=== PATIENT | female | born 1965 | race Caucasian/White ===

== ENCOUNTER 2019-10-21 17:29 | Emergency (ER) | payer OTHER ==
[2019-10-21] MEDS ORDERED: Sodium Chloride 0.9% 10 ML Syringe FLUSH PRN (17:44)
[2019-10-21] MEDS ORDERED: Sodium Chloride 0.9% 1,000 ML IV ONE (17:44)
[2019-10-21] MEDS ORDERED: diphenhydrAMINE 50 MG/ML SDV IVPUSH ONE (17:47)
[2019-10-21] MEDS ORDERED: Dexamethasone 10 MG/ML SDV IVPUSH ONE (17:48)
[2019-10-21] MEDS ORDERED: HYDROmorphone 2 MG/ML SDV IVPUSH ONE (17:50)
--- NOTE | 2019-10-21 17:59 | EDM.PDOC ---
ED HPI GENERAL MEDICAL PROBLEM - General Chief Complaint: Headache Stated Complaint: Migrane Time Seen by Provider: 10/21/19 17:32 Source of Information: Reports: Patient, Family History Limitations: Reports: No Limitations - History of Present Illness INITIAL COMMENTS - FREE TEXT/NARRATIVE: Patient report she awoke early this AM with a typical migraine for her. She reports dull aching pain behind the right eye with nausea and vomiting. She took a benadryl and an anti-emetic she cannot recall the name of. The patient reports her pain is not improved prompting her to seek care in the emergency department. The patient rate her pain currentlly at a 7/10. She denies any red flag symptoms. Onset: Today Duration: Hour(s): (12) Location: Reports: Head Quality: Reports: Ache, Same as Previous Episode Severity: Moderate Improves with: Reports: None Worsens with: Reports: Movement Associated Symptoms: Reports: Headaches, Loss of Appetite, Nausea/Vomiting. 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 Denies: Confusion, Dizziness, Numbness, Paresthesia, Seizure, Syncope, Tingling, Tremors, Trouble Speaking, Difficulty Walking, Weakness, Change in Speech, Gait Disturbance ED EXAM, GENERAL - Physical Exam Exam: See Below Exam Limited By: No Limitations General Appearance: Alert, WD/WN, No Apparent Distress Eye Exam: Bilateral Eye: Normal Fundi, Normal Inspection Ears: Normal External Exam, Normal Canal, Hearing Grossly Normal, Normal TMs Nose: Normal Inspection, Normal Mucosa, No Blood Throat/Mouth: Normal Inspection, Normal Lips, Normal Teeth, Normal Gums, Normal Oropharynx, Normal Voice, No Airway Compromise Head: Atraumatic Neck: Normal Inspection, Supple, Non-Tender, Full Range of Motion Respiratory/Chest: No Respiratory Distress, Lungs Clear, Normal Breath Sounds, No Accessory Muscle Use, Chest Non-Tender Cardiovascular: Normal Peripheral Pulses, Regular Rate, Rhythm, No Edema, No Gallop, No JVD, No Murmur, No Rub GI/Abdominal: Normal Bowel Sounds, Soft, Non-Tender, No Organomegaly, No Distention, No Abnormal Bruit, No Mass Back Exam: Normal Inspection Extremities: Normal Inspection, Normal Range of Motion, Non-Tender, Normal Capillary Refill, No Pedal Edema Neurological: Alert, Oriented, CN II-XII Intact, Normal Cognition, Normal Gait, Normal Reflexes, No Motor/Sensory Deficits Skin Exam: Warm, Dry, Intact, Normal Color, No Rash Course - Vital Signs Last Recorded V/S: Last Vital Signs Temp 98.2 F 10/21/19 17:38 Pulse 64 10/21/19 17:38 Resp 16 10/21/19 17:38 BP 163/87 H 10/21/19 17:38 Pulse Ox 98 10/21/19 17:38 - Orders/Labs/Meds Orders: Active Orders 24 hr Category Date Time Status Sodium Chloride 0.9% [Saline Flush] Med 10/21/19 17:44 Active 10 ml FLUSH ASDIRECTED PRN Peripheral IV Insertion Adult [OM.PC] Routine Oth 10/21/19 17:44 Ordered Medication Orders Sodium Chloride (Saline Flush) 10 ml FLUSH ASDIRECTED PRN PRN Reason: Keep Vein Open Meds: Medications Generic Name Dose Route Start Last Admin Trade Name Freq PRN Reason Stop Dose Admin Sodium Chloride 10 ml 10/21/19 17:44 Saline Flush FLUSH ASDIRECTED PRN Keep Vein Open Discontinued Medications Generic Name Dose Route Start Last Admin Trade Name Freq PRN Reason Stop Dose Admin Dexamethasone 10 mg 10/21/19 17:48 10/21/19 18:07 Dexamethasone IVPUSH 10/21/19 17:49 10 mg ONETIME ONE Administration Dexamethasone Confirm 10/21/19 18:06 10/21/19 18:07 Dexamethasone Administered 10/21/19 18:07 Not Given Dose 12 mg .ROUTE .STK-MED ONE Diphenhydramine HCl 25 mg 10/21/19 17:47 10/21/19 18:05 Benadryl IVPUSH 10/21/19 17:48 50 mg ONETIME ONE Administration Diphenhydramine HCl Confirm 10/21/19 18:05 10/21/19 18:03 Benadryl Administered 10/21/19 18:06 Not Given Dose 50 mg .ROUTE .STK-MED ONE Hydromorphone HCl 1 mg 10/21/19 17:50 10/21/19 18:13 Dilaudid IVPUSH 10/21/19 17:51 1 mg ONETIME ONE Administration Hydromorphone HCl Confirm 10/21/19 18:07 10/21/19 18:12 Dilaudid Administered 10/21/19 18:08 Not Given Dose 2 mg .ROUTE .STK-MED ONE Sodium Chloride 1,000 mls @ 1,000 mls/hr 10/21/19 17:44 10/21/19 18:04 Normal Saline IV 10/21/19 18:43 1,000 mls/hr .BOLUS ONE Administration Prochlorperazine Edisylate 10 52 mls @ 150 mls/hr 10/21/19 18:00 10/21/19 18:21 mg/ Sodium Chloride IV 10/21/19 18:20 150 mls/hr ONETIME ONE Administration Prochlorperazine Edisylate Confirm 10/21/19 18:29 10/21/19 18:27 Compazine Administered 10/21/19 18:30 Not Given Dose 10 mg .ROUTE .STK-MED ONE Departure - Departure Time of Disposition: 18:54 Disposition: Home, Self-Care 01 Condition: Good Clinical Impression: Migraine - Discharge Information *PRESCRIPTION DRUG MONITORING PROGRAM REVIEWED*: Yes *COPY OF PRESCRIPTION DRUG MONITORING REPORT IN PATIENT YANNICK: Yes Instructions: Migraine Headache, [id number] Referrals: PCP,None [Primary Care Provider] - Forms: ED Department Discharge Sepsis Event Note (ED) - Evaluation Sepsis Screening Result: No Definite Risk - Focused Exam Vital Signs: Vital Signs Temp Pulse Resp BP Pulse Ox 10/21/19 17:38 98.2 F 64 16 163/87 H 98 - Problem List Review Problem List Initiated/Reviewed/Updated: Yes - My Orders Last 24 Hours: My Active Orders 10/21/19 17:44 Sodium Chloride 0.9% [Saline Flush] 10 ml FLUSH ASDIRECTED PRN Peripheral IV Insertion Adult [OM.PC] Routine - Assessment/Plan Last 24 Hours: My Active Orders 10/21/19 17:44 Sodium Chloride 0.9% [Saline Flush] 10 ml FLUSH ASDIRECTED PRN Peripheral IV Insertion Adult [OM.PC] Routine Plan: DIFFERENTIAL DIAGNOSIS: Typical Migraine Atypical migraine SAH Acute Cephalgia Tension GONZALEZ Amongst many others INITIAL PLAN: IVF GONZALEZ Cocktail MDM: Patient had what she reported to her was a "typical migraine." She had no red flag symptoms for a SAH or meningococcal signs. The patient will have an IV initiated and given an GONZALEZ cocktail. Patient was markedly improved post treatment and wishes to be discharged home. The patient remained stable throughout her ED stay and is appropriate for discharged from the ED with her spouse. The patient was given return instructions as well as follow-up instructions with her PCP. All questions were answered. FINAL PLAN: Discharge with return warnings
[2019-10-21] MEDS ORDERED: Prochlorperazine 10 MG in Sodium Chloride 0.9% 50 ML IV ONE (18:00)
[2019-10-21] MEDS ORDERED: diphenhydrAMINE 50 MG/ML SDV ONE (18:05)
[2019-10-21] MEDS ORDERED: Dexamethasone 4 MG/ML SDV ONE (18:06)
[2019-10-21] MEDS ORDERED: HYDROmorphone 2 MG/ML SDV ONE (18:07)
[2019-10-21] MEDS ORDERED: Prochlorperazine 10 MG/2 ML SDV ONE (18:29)
[2019-10-21] MEDS ORDERED: Acetaminophen/HYDROcodone 325-10 MG Tab PO ONE (18:49)
[2019-10-21] MEDS ORDERED: Ondansetron 4 MG/2 ML SDV IVPUSH ONE (18:49)
[2019-10-21] MEDS ORDERED: Ondansetron 4 MG/2 ML SDV ONE (19:04)
[2019-10-21] MEDS ORDERED: Acetaminophen/HYDROcodone 325-10 MG Tab ONE (19:05)
== END 2019-10-21 19:21 | disposition home or self-care (01) ==
LOC: LB.ED 17:29
DX: G43.909 Migraine, unspecified, not intractable, without status migrainosus (principal)
CPT/HCPCS: 96365; 96375; 99283; 99283-25; A9270-GY; J0780; J1100; J1170; J1200; J2405; J7030; J7050